=== PATIENT | male | born 1985 | race Caucasian/White ===

== ENCOUNTER 2018-03-26 22:12 | Outpatient (CLI) | payer OTHER | END 2018-03-26 22:13 | disposition critical access hospital (66) | LOC: EMS 22:12 | PROVIDERS: ATTEND Surgery | DX: M54.5 Low back pain (principal); M79.602 Pain in left arm; M79.601 Pain in right arm; S09.92XA Unspecified injury of nose, initial encounter; V48.5XXA Car driver injured in noncollision transport accident in traffic accident, initial encounter; Y92.414 Local residential or business street as the place of occurrence of the external cause | CPT/HCPCS: A0425; A0429 ==

== ENCOUNTER 2018-03-26 22:34 | Emergency (ER) | payer OTHER ==
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
[2018-03-26] MEDS ORDERED: BACITRACIN OINT TOP ONE (23:51)
[2018-03-26] MEDS ORDERED: IOPAMIDOL-300 100 ML VIAL ONE (23:54)
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
[2018-03-27] MEDS ORDERED: IOPAMIDOL-300 100 ML VIAL IVP ONE (00:28)
[2018-03-27] MEDS ORDERED: TETANUS/DIPHTHERIA/PERTUSSIS 0.5 ML SYRINGE IM ONE (00:35)
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
[2018-03-27 01:10] VITALS: BP 122/79
== END 2018-03-27 01:21 | disposition home or self-care (01) ==
LOC: ED 22:34
DX: S01.111A Laceration without foreign body of right eyelid and periocular area, initial encounter (principal); S01.81XA Laceration without foreign body of other part of head, initial encounter; V47.5XXA Car driver injured in collision with fixed or stationary object in traffic accident, initial encounter; Y92.410 Unspecified street and highway as the place of occurrence of the external cause; N04.9 Nephrotic syndrome with unspecified morphologic changes; F17.200 Nicotine dependence, unspecified, uncomplicated; Z23 Encounter for immunization
CPT/HCPCS: 12011; 70450; 70486; 71260; 72070; 72100; 72125; 74177; 90471; 90715; 99283; 99284; A9270; Q9967

== ENCOUNTER 2018-03-27 00:10 | Outpatient (CLI) | payer OTHER | END 2018-03-27 00:11 | disposition home or self-care (01) | LOC: LAB 00:10 | PROVIDERS: ATTEND Pathology Blood Banking & Transfusion Medicine | DX: Z53.9 Procedure and treatment not carried out, unspecified reason (principal) | CPT/HCPCS: 36415 ==